=== PATIENT | male | born 1955 | race African-American/Black ===

== ENCOUNTER 2016-12-02 09:27 | Inpatient (IN) | payer MEDICAID, OTHER ==
[~2016-12-02] VITALS: Ht 180.3 cm; Wt 68.0 kg
[~2016-12-02 09:27] MED LIST: ADVAIR; ALBU18HF2; ALBU2.5V13; ALBUTEROL; ATROV; ATROVENT; CARI350T27; CLOT15CR5; DIPH25CA6; FLUT1DIS3; HYDR-3162; LORA0.5T2; NITR0.4T; ROBITUSSIN; TAMS0.4C31; VIC; ZOCOR
[2016-12-02] MEDS ORDERED: IPRATROPIUM/ALBUTEROL 0.5-3(2.5)MG/3ML NEB HHN ONE (10:00)
[2016-12-02 10:34] LABS: HEMATOCRIT. 41.7 % (42.0-52.0); HEMOGLOBIN. 13.6 g/dL (14.0-18.0); MEAN CORPUSCULAR HEMOGLOBIN 28.8 pg (28.0-32.0); MEAN CORPUSCULAR VOLUME 88.4 fL (80.0-94.0); MEAN PLATELET VOLUME 7.5 fl (7.4-10.4); PLATELET 209 x1000/uL (130-400); RED BLOOD CELL COUNT 4.72 mill/uL (4.7-6.1); RED CELL DISTRIBUTION WIDTH 16.1 % (11.6-14.6)
[2016-12-02 10:40] LABS: CHLORIDE 106 mEq/L (98-107)
[2016-12-02 10:43] LABS: INR 1.1; PARTIAL THROMBOPLASTIN TIME 23.4 sec (23.4-31.0)
[2016-12-02] MEDS ORDERED: LEVOFLOXACIN 750MG PREMIX 150 ML IV ONE (10:45)
[2016-12-02 10:55] LABS: CARBON DIOXIDE 31 mEq/L (21-32)
[2016-12-02 11:03] LABS: TROPONIN I < 0.02 ng/mL (0.00-0.04)
[2016-12-02 11:34] LABS: CLARITY URINE CLEAR (CLEAR); COLOR URINE YELLOW (YELLOW); GLUCOSE URINE NEGATIVE (NEGATIVE); KETONES URINE NEGATIVE (NEGATIVE); LEUKOCYTE ESTERASE URINE NEGATIVE (NEGATIVE); NITRITE URINE NEGATIVE (NEGATIVE); OCCULT BLOOD URINE NEGATIVE (NEGATIVE); PROTEIN URINE NEGATIVE (NEGATIVE); SPECIFIC GRAVITY URINE 1.016 (1.005-1.030); UROBILINOGEN URINE 0.2 E.U./dL (0.2-1.0)
[2016-12-02 12:01] LABS: *AMPHETAMINES SCREEN URINE NEGATIVE (NEGATIVE); *BARBITURATES SCREEN URINE NEGATIVE (NEGATIVE); *BENZODIAZEPINES SCREEN URINE NEGATIVE (NEGATIVE); *COCAINE SCREEN URINE PRESUMTIVE POSITIVE (NEGATIVE); CANNABINOID URINE SCREEN NEGATIVE (NEGATIVE); METHADONE URINE SCREEN NEGATIVE (NEGATIVE); OPIATES URINE SCREEN NEGATIVE (NEGATIVE); PHENCYCLIDINE URINE SCREEN NEGATIVE (NEGATIVE)
[2016-12-02 12:16] LABS: PLATELET ESTIMATE NORMAL
[2016-12-02] MEDS ORDERED: IPRATROPIUM/ALBUTEROL 0.5-3(2.5)MG/3ML NEB INH PRN (12:45)
[2016-12-02] MEDS ORDERED: CLONIDINE 0.1MG TABLET PO PRN (12:45)
[2016-12-02] MEDS ORDERED: ONDANSETRON HCL 4MG/2ML VIAL IV PRN (12:45)
[2016-12-02] MEDS ORDERED: ACETAMINOPHEN 325MG TABLET PO PRN (12:45)
[2016-12-02] MEDS: HYDROCODONE/ACETAMINOPHEN 5/325MG TABLET PO PRN ×2 (13:34→17:48)
[2016-12-02 15:28] VITALS: BP 128/62
[2016-12-02 16:03] VITALS: BP 128/62
[2016-12-02] MEDS ORDERED: DIPH25CA83 PO (16:14)
[2016-12-02] MEDS ORDERED: CARI350T PO (16:14)
[2016-12-02] MEDS ORDERED: PROM6.25 PO (16:24)
[2016-12-02] MEDS ORDERED: DIPHENHYDRAMINE 25MG CAPSULE PO SCH (16:30)
[2016-12-02] MEDS: CARISOPRODOL 350 MG TABLET PO PRN (17:43)
[2016-12-02] MEDS: METHYLPREDNISOLONE SOD SUCC 40 MG/ML VIAL IV SCH ×2 (17:43→23:17)
[2016-12-02] MEDS ORDERED: VANCOMYCIN 1250MG in DEXTROSE 5% WATER 250ML IV NR (18:30)
[2016-12-02] MEDS: PROMETHAZINE LIQUID 6.25MG/5ML 118ML PO PRN (18:33)
[2016-12-02 20:00] VITALS: BP 135/79
[2016-12-03] VITALS: BP 142/73
[2016-12-03] MEDS ORDERED: VANCOMYCIN 1 G PREMIX 200 ML IV SCH (02:00)
[2016-12-03] MEDS: HYDROCODONE/ACETAMINOPHEN 5/325MG TABLET PO PRN (03:01)
[2016-12-03] MEDS: PROMETHAZINE LIQUID 6.25MG/5ML 118ML PO PRN ×2 (03:02→18:25)
[2016-12-03] MEDS: IPRATROPIUM/ALBUTEROL 0.5-3(2.5)MG/3ML NEB INH SCH ×5 (03:31→21:06)
[2016-12-03 04:00] VITALS: BP 132/78
[2016-12-03] MEDS ORDERED: VANCOMYCIN 750 MG PREMIX 150 ML IV SCH (05:00)
[2016-12-03] MEDS: CARISOPRODOL 350 MG TABLET PO PRN ×2 (05:43→18:25)
[2016-12-03 07:07] LABS: HEMATOCRIT. 42.5 % (42.0-52.0); MEAN CORPUSCULAR HEMOGLOBIN 29.1 pg (28.0-32.0); MEAN CORPUSCULAR VOLUME 88.2 fL (80.0-94.0); MEAN PLATELET VOLUME 7.6 fl (7.4-10.4); PLATELET 211 x1000/uL (130-400); RED BLOOD CELL COUNT 4.82 mill/uL (4.7-6.1); RED CELL DISTRIBUTION WIDTH 16.2 % (11.6-14.6)
[2016-12-03 07:42] LABS: CARBON DIOXIDE 22 mEq/L (21-32); CHLORIDE 105 mEq/L (98-107); LDL CHOLESTEROL 61 mg/dL (5-100)
[2016-12-03 07:43] LABS: HDL CHOLESTEROL 98 mg/dL (40-59)
[2016-12-03 08:00] VITALS: BP 139/78
[2016-12-03] MEDS: DIPHENHYDRAMINE 50MG/ML VIAL IV PRN ×2 (09:19→21:25)
[2016-12-03] MEDS: METHYLPREDNISOLONE SOD SUCC 40 MG/ML VIAL IV SCH ×2 (09:19→18:11)
[2016-12-03] MEDS: MULTIVITAMINS,THER W-MINERALS TABLET PO SCH (11:31)
[2016-12-03] MEDS: FOLIC ACID 1MG TABLET PO SCH (11:31)
[2016-12-03] MEDS: VANCOMYCIN 1 G PREMIX 200 ML IV SCH ×2 (11:31→22:53)
[2016-12-03] MEDS: THIAMINE HCL 100MG TABLET PO SCH (11:31)
[2016-12-03 12:00] VITALS: BP 141/76
[2016-12-03] MEDS: MORPHINE SULFATE 4 MG/ML CPJ (NOT FOR IM USE) IV PRN ×2 (14:10→18:11)
[2016-12-03] MEDS: ENOXAPARIN 40MG/0.4ML SYR SUBCUT SCH (14:11)
[2016-12-03 16:00] VITALS: BP 128/73
[2016-12-03] MEDS ORDERED: IOHEXOL-300 100 ML BOTTLE ONE (16:57)
[2016-12-03 17:36] LABS: PLATELET ESTIMATE NORMAL
[2016-12-03 20:00] VITALS: BP 119/58
[2016-12-04] VITALS: BP 111/56
[2016-12-04] MEDS: METHYLPREDNISOLONE SOD SUCC 40 MG/ML VIAL IV SCH ×2 (01:13→10:19)
[2016-12-04] MEDS: IPRATROPIUM/ALBUTEROL 0.5-3(2.5)MG/3ML NEB INH SCH ×3 (01:14→07:40)
[2016-12-04] MEDS: BUDESONIDE 0.5MG/2ML NEB HHN SCH ×2 (01:14→07:40)
[2016-12-04] MEDS: PROMETHAZINE LIQUID 6.25MG/5ML 118ML PO PRN ×2 (03:31→10:35)
[2016-12-04] MEDS: CARISOPRODOL 350 MG TABLET PO PRN ×2 (03:33→15:36)
[2016-12-04 04:00] VITALS: BP 118/62
[2016-12-04 07:47] LABS: HEMATOCRIT. 40.5 % (42.0-52.0); HEMOGLOBIN. 13.2 g/dL (14.0-18.0); MEAN CORPUSCULAR HEMOGLOBIN 28.7 pg (28.0-32.0); MEAN CORPUSCULAR VOLUME 87.9 fL (80.0-94.0); MEAN PLATELET VOLUME 7.5 fl (7.4-10.4); PLATELET 240 x1000/uL (130-400); RED BLOOD CELL COUNT 4.61 mill/uL (4.7-6.1); RED CELL DISTRIBUTION WIDTH 16.1 % (11.6-14.6)
[2016-12-04 08:00] VITALS: BP 119/64
[2016-12-04 08:08] LABS: CARBON DIOXIDE 28 mEq/L (21-32); CHLORIDE 105 mEq/L (98-107)
[2016-12-04] MEDS: FOLIC ACID 1MG TABLET PO SCH (10:19)
[2016-12-04] MEDS: MULTIVITAMINS,THER W-MINERALS TABLET PO SCH (10:19)
[2016-12-04] MEDS: THIAMINE HCL 100MG TABLET PO SCH (10:19)
[2016-12-04] MEDS: VANCOMYCIN 1 G PREMIX 200 ML IV SCH (10:19)
[2016-12-04] MEDS: HYDROCODONE/ACETAMINOPHEN 5/325MG TABLET PO PRN (10:35)
[2016-12-04 12:00] VITALS: BP 108/59
[2016-12-04] MEDS ORDERED: LEVO500T2 PO (14:52)
[2016-12-04] MEDS ORDERED: FOLI-43 PO (14:52)
[2016-12-04] MEDS ORDERED: CLIN300C11 PO (14:52)
[2016-12-04] MEDS ORDERED: P20 PO (14:52)
[2016-12-04] MEDS ORDERED: THIA100T72 PO (14:52)
[2016-12-04] MEDS ORDERED: HYDR-4001 PO (14:52)
[2016-12-04] MEDS: ENOXAPARIN 40MG/0.4ML SYR SUBCUT SCH (15:36)
[2016-12-04 15:43] LABS: PLATELET ESTIMATE NORMAL
[2016-12-04 16:00] VITALS: BP 131/71
[2016-12-04] MEDS ORDERED: PREDNISONE 20MG TABLET PO SCH (17:00)
[2016-12-04 19:09] VITALS: BP 125/74
== END 2016-12-04 19:28 | disposition home or self-care (01) | DRG 721 ==
LOC: ER 09:57 → 5WST 10:46 → EDBEDREQ 10:49 → ENRESERV 13:35
PROVIDERS: ADMIT Internal Medicine; ATTEND Internal Medicine
DX: T81.4XXA Infection following a procedure, initial encounter (principal); J96.00 Acute respiratory failure, unspecified whether with hypoxia or hypercapnia; J12.9 Viral pneumonia, unspecified; J44.0 Chronic obstructive pulmonary disease with (acute) lower respiratory infection; J44.1 Chronic obstructive pulmonary disease with (acute) exacerbation; I10 Essential (primary) hypertension; J20.9 Acute bronchitis, unspecified; F14.10 Cocaine abuse, uncomplicated; F10.10 Alcohol abuse, uncomplicated; R91.1 Solitary pulmonary nodule; F19.10 Other psychoactive substance abuse, uncomplicated; F17.200 Nicotine dependence, unspecified, uncomplicated; M25.572 Pain in left ankle and joints of left foot; G89.29 Other chronic pain; Z88.6 Allergy status to analgesic agent; Z79.1 Long term (current) use of non-steroidal anti-inflammatories (NSAID); Z79.899 Other long term (current) drug therapy; Z85.118 Personal history of other malignant neoplasm of bronchus and lung; Z88.0 Allergy status to penicillin; Z88.8 Allergy status to other drugs, medicaments and biological substances
CPT/HCPCS: 36415; 71010; 71270; 73610; 80048; 80053; 80061; 80305; 81003; 83880; 84484; 85025; 85610; 85730; 87040; 87086; 93005; 94640; 96365; 96366; 97116; 97162; 99285; J1200; J1650; J1956; J2270; J2920; J3370; J7040; J7060; J7620; J7626; Q0169; Q9967

== ENCOUNTER 2016-12-10 12:13 | Emergency (ER) | payer MEDICAID ==
[~2016-12-10] VITALS: Ht 182.9 cm; Wt 103.0 kg
[~2016-12-10 12:13] MED LIST changes: -ADVAIR; -ALBU18HF2; -ATROVENT; +CARI350T PO; -CARI350T27; +CLIN300C11 PO; -CLOT15CR5; -DIPH25CA6; +DIPH25CA83 PO; +FOLI-43 PO; -HYDR-3162; +HYDR-4001 PO; +LEVO500T2 PO; -LORA0.5T2; -NITR0.4T; +P20 PO; +PROM6.25 PO; -ROBITUSSIN; -TAMS0.4C31; +THIA100T72 PO; -VIC; -ZOCOR
[2016-12-10] MEDS ORDERED: LEVOFLOXACIN 500MG TABLET PO ONE (17:00)
[2016-12-10 17:16] VITALS: BP 101/74
== END 2016-12-10 17:17 | disposition home or self-care (01) ==
LOC: ER 12:13
DX: Z76.0 Encounter for issue of repeat prescription (principal); M86.9 Osteomyelitis, unspecified; I10 Essential (primary) hypertension; J44.9 Chronic obstructive pulmonary disease, unspecified; F12.10 Cannabis abuse, uncomplicated; Z88.0 Allergy status to penicillin; Z88.6 Allergy status to analgesic agent
CPT/HCPCS: 99283

== ENCOUNTER 2017-09-25 05:31 | Emergency (ER) | payer MEDICAID ==
[~2017-09-25] VITALS: Ht 177.8 cm; Wt 75.0 kg
[~2017-09-25 05:31] MED LIST changes: -CARI350T PO; +S350 PO
[2017-09-25 05:55] VITALS: BP 122/71
[2017-09-25] MEDS ORDERED: ACETAMINOPHEN 325MG TABLET PO ONE (09:15)
== END 2017-09-25 10:43 | disposition home or self-care (01) ==
LOC: ER 05:31
DX: S96.912A Strain of unspecified muscle and tendon at ankle and foot level, left foot, initial encounter (principal); J44.9 Chronic obstructive pulmonary disease, unspecified; I10 Essential (primary) hypertension; Z88.6 Allergy status to analgesic agent; Z91.013 Allergy to seafood; Z88.0 Allergy status to penicillin; Z98.890 Other specified postprocedural states; X58.XXXA Exposure to other specified factors, initial encounter; Y93.89 Activity, other specified; Y92.018 Other place in single-family (private) house as the place of occurrence of the external cause
CPT/HCPCS: 73610; 73630; 99284; Z7610

== ENCOUNTER 2018-03-04 07:39 | Inpatient (IN) | payer MEDICAID ==
[~2018-03-04] VITALS: Ht 180.3 cm; Wt 66.2 kg
[~2018-03-04 07:39] MED LIST changes: -PROM6.25 PO; +PROM6.254 PO
[2018-03-04] MEDS ORDERED: NITROGLYCERIN 0.4MG TABLET SL SL PRN (09:30)
[2018-03-04] MEDS ORDERED: ASPIRIN 81MG TABLET PO ONE (09:30)
[2018-03-04 09:55] LABS: HEMATOCRIT. 45.7 % (42.0-52.0); MEAN CORPUSCULAR HEMOGLOBIN 30.2 pg (28.0-32.0); PLATELET 196 x1000/uL (130-400); RED BLOOD CELL COUNT 4.97 mill/uL (4.7-6.1); RED CELL DISTRIBUTION WIDTH 14.2 % (11.6-14.6)
[2018-03-04 10:01] LABS: CHLORIDE 105 mEq/L (98-107)
[2018-03-04 10:14] LABS: ATYPICAL LYMPHOCYTES 1
[2018-03-04 10:15] LABS: PLATELET ESTIMATE NORMAL
[2018-03-04] MEDS ORDERED: CLONIDINE 0.1MG TABLET PO PRN (13:30)
[2018-03-04] MEDS ORDERED: ONDANSETRON HCL 4MG/2ML INJ IV PRN (13:30)
[2018-03-04] MEDS ORDERED: ACETAMINOPHEN 325MG TABLET PO PRN (13:30)
[2018-03-04 14:17] LABS: CLARITY URINE CLEAR (CLEAR); COLOR URINE YELLOW (YELLOW); KETONES URINE NEGATIVE (NEGATIVE); LEUKOCYTE ESTERASE URINE NEGATIVE (NEGATIVE); NITRITE URINE NEGATIVE (NEGATIVE); OCCULT BLOOD URINE NEGATIVE (NEGATIVE); PH URINE 6.5 (4.5-8.0); PROTEIN URINE NEGATIVE (NEGATIVE); SPECIFIC GRAVITY URINE 1.005 (1.005-1.030); UROBILINOGEN URINE 0.2 E.U./dL (0.2-1.0)
[2018-03-04 14:35] LABS: *AMPHETAMINES SCREEN URINE NEGATIVE (NEGATIVE); *BARBITURATES SCREEN URINE NEGATIVE (NEGATIVE); *BENZODIAZEPINES SCREEN URINE NEGATIVE (NEGATIVE); *COCAINE SCREEN URINE PRESUMTIVE POSITIVE (NEGATIVE)
[2018-03-04 14:36] LABS: CANNABINOID URINE SCREEN NEGATIVE (NEGATIVE); METHADONE URINE SCREEN NEGATIVE (NEGATIVE); OPIATES URINE SCREEN NEGATIVE (NEGATIVE); PHENCYCLIDINE URINE SCREEN NEGATIVE (NEGATIVE)
[2018-03-04] MEDS ORDERED: AZITHROMYCIN 500 MG TABLET PO SCH (15:45)
[2018-03-04] MEDS ORDERED: AMLODIPINE 2.5MG TABLET PO SCH (16:00)
[2018-03-04] MEDS: HYDROCODONE/ACETAMINOPHEN 5/325MG TABLET PO PRN ×2 (18:10→22:04)
[2018-03-04 20:00] VITALS: BP 130/93
[2018-03-04] MEDS: ENOXAPARIN 40MG/0.4ML SYR SUBCUT SCH (20:13)
[2018-03-04] MEDS: AZITHROMYCIN 500 MG TABLET PO SCH (20:13)
[2018-03-04] MEDS: AMLODIPINE 2.5MG TABLET PO SCH (20:14)
[2018-03-04] MEDS: IPRATROPIUM/ALBUTEROL 0.5-3(2.5)MG/3ML NEB HHN PRN (20:45)
[2018-03-04 21:43] LABS: CHLORIDE 104 mEq/L (98-107)
[2018-03-04 21:52] LABS: CREATINE KINASE 283 IU/L (39-308)
[2018-03-04 21:54] LABS: CREATINE KINASE MB FRACTION 1.9 ng/mL (0.5-3.6)
[2018-03-04 23:48] VITALS: BP 140/80
[2018-03-05] MEDS ORDERED: DEXTROSE 50% WATER 50ML SYRINGE IV PRN (00:45)
[2018-03-05] MEDS: HYDROCODONE/ACETAMINOPHEN 5/325MG TABLET PO PRN ×4 (03:15→22:30)
[2018-03-05 03:52] VITALS: BP 142/78
[2018-03-05] MEDS: BLOOD SUGAR DIAGNOSTIC STRIP TEST SCH ×4 (06:47→21:15)
[2018-03-05] MEDS: INSULIN LISPRO 100 UNITS/ML SUBCUT SCH ×4 (06:47→21:00)
[2018-03-05 07:17] LABS: HEMATOCRIT. 43.4 % (42.0-52.0); HEMOGLOBIN. 14.1 g/dL (14.0-18.0); MEAN CORPUSCULAR HEMOGLOBIN 30.2 pg (28.0-32.0); MEAN CORPUSCULAR VOLUME 92.7 fL (80.0-94.0); MEAN PLATELET VOLUME 7.3 fl (7.4-10.4); PLATELET 183 x1000/uL (130-400); RED BLOOD CELL COUNT 4.68 mill/uL (4.7-6.1); RED CELL DISTRIBUTION WIDTH 14.2 % (11.6-14.6)
[2018-03-05 07:43] LABS: CHLORIDE 101 mEq/L (98-107)
[2018-03-05 07:51] LABS: LDL CHOLESTEROL 56 mg/dL (5-100)
[2018-03-05 07:53] LABS: CREATINE KINASE 205 IU/L (39-308)
[2018-03-05 07:54] LABS: HDL CHOLESTEROL 82 mg/dL (40-59)
[2018-03-05 07:56] LABS: CREATINE KINASE MB FRACTION 1.4 ng/mL (0.5-3.6)
[2018-03-05 08:00] VITALS: BP 122/78
[2018-03-05] MEDS: AMLODIPINE 2.5MG TABLET PO SCH ×2 (09:00→21:15)
[2018-03-05 12:10] VITALS: BP 135/80
[2018-03-05 13:48] LABS: PLATELET ESTIMATE NORMAL
[2018-03-05 16:00] VITALS: BP 108/75
[2018-03-05 20:00] VITALS: BP 136/91
[2018-03-05] MEDS: IPRATROPIUM/ALBUTEROL 0.5-3(2.5)MG/3ML NEB HHN PRN (21:05)
[2018-03-05] MEDS: AZITHROMYCIN 500 MG TABLET PO SCH (21:14)
[2018-03-05] MEDS: ENOXAPARIN 40MG/0.4ML SYR SUBCUT SCH (21:15)
[2018-03-06] VITALS: BP 114/95
[2018-03-06 04:00] VITALS: BP 116/71
[2018-03-06] MEDS: HYDROCODONE/ACETAMINOPHEN 5/325MG TABLET PO PRN ×3 (05:39→20:48)
[2018-03-06] MEDS: INSULIN LISPRO 100 UNITS/ML SUBCUT SCH ×4 (06:18→20:47)
[2018-03-06] MEDS: BLOOD SUGAR DIAGNOSTIC STRIP TEST SCH ×4 (06:18→20:47)
[2018-03-06 07:33] LABS: HEMATOCRIT. 45.6 % (42.0-52.0); HEMOGLOBIN. 15.4 g/dL (14.0-18.0); MEAN CORPUSCULAR HEMOGLOBIN 31.3 pg (28.0-32.0); MEAN CORPUSCULAR VOLUME 92.2 fL (80.0-94.0); MEAN PLATELET VOLUME 7.4 fl (7.4-10.4); PLATELET 183 x1000/uL (130-400); RED BLOOD CELL COUNT 4.94 mill/uL (4.7-6.1); RED CELL DISTRIBUTION WIDTH 14.1 % (11.6-14.6)
[2018-03-06 07:47] LABS: CHLORIDE 100 mEq/L (98-107)
[2018-03-06 08:00] VITALS: BP 131/77
[2018-03-06 08:10] LABS: CREATINE KINASE 197 IU/L (39-308)
[2018-03-06] MEDS: AMLODIPINE 2.5MG TABLET PO SCH ×2 (09:49→20:46)
[2018-03-06 10:11] LABS: HIV SCREEN 4G Non Reactive (Non Reactive)
[2018-03-06 12:00] VITALS: BP 118/73
[2018-03-06] MEDS: LISINOPRIL 2.5MG TABLET PO SCH (13:03)
[2018-03-06] MEDS: FUROSEMIDE 40MG TABLET PO SCH (13:04)
[2018-03-06] MEDS: POTASSIUM CHLORIDE 10MEQ TABLET SR PO SCH (13:04)
[2018-03-06] MEDS: PROMETHAZINE/DEXTROMETHORPHAN 6.25-15MG/5ML BOTTLE 120ML PO PRN ×2 (15:28→22:35)
[2018-03-06 15:38] LABS: PLATELET ESTIMATE NORMAL
[2018-03-06 16:00] VITALS: BP 122/76
[2018-03-06 20:00] VITALS: BP 125/56
[2018-03-06] MEDS: ENOXAPARIN 40MG/0.4ML SYR SUBCUT SCH (20:46)
[2018-03-06] MEDS: AZITHROMYCIN 500 MG TABLET PO SCH (20:46)
[2018-03-07] VITALS: BP 133/67
[2018-03-07] MEDS: HYDROCODONE/ACETAMINOPHEN 5/325MG TABLET PO PRN ×3 (01:36→20:25)
[2018-03-07 04:00] VITALS: BP 115/63
[2018-03-07] MEDS: PROMETHAZINE/DEXTROMETHORPHAN 6.25-15MG/5ML BOTTLE 120ML PO PRN ×4 (04:50→23:40)
[2018-03-07] MEDS: INSULIN LISPRO 100 UNITS/ML SUBCUT SCH ×4 (05:51→21:00)
[2018-03-07] MEDS: BLOOD SUGAR DIAGNOSTIC STRIP TEST SCH ×4 (05:51→21:53)
[2018-03-07 06:40] LABS: HEMATOCRIT. 46.3 % (42.0-52.0); HEMOGLOBIN. 15.4 g/dL (14.0-18.0); MEAN CORPUSCULAR HEMOGLOBIN 30.7 pg (28.0-32.0); MEAN CORPUSCULAR VOLUME 92.3 fL (80.0-94.0); MEAN PLATELET VOLUME 7.6 fl (7.4-10.4); PLATELET 180 x1000/uL (130-400); RED BLOOD CELL COUNT 5.02 mill/uL (4.7-6.1)
[2018-03-07 07:16] LABS: CHLORIDE 97 mEq/L (98-107)
[2018-03-07 08:00] VITALS: BP 106/67
[2018-03-07] MEDS: LISINOPRIL 2.5MG TABLET PO SCH (09:00)
[2018-03-07] MEDS: AMLODIPINE 2.5MG TABLET PO SCH ×2 (09:00→20:25)
[2018-03-07] MEDS: POTASSIUM CHLORIDE 10MEQ TABLET SR PO SCH (09:08)
[2018-03-07] MEDS: FUROSEMIDE 40MG TABLET PO SCH ×2 (09:08→17:00)
[2018-03-07 12:00] VITALS: BP 140/77
[2018-03-07 14:25] LABS: PLATELET ESTIMATE NORMAL
[2018-03-07 16:00] VITALS: BP 112/89
[2018-03-07] MEDS: IPRATROPIUM/ALBUTEROL 0.5-3(2.5)MG/3ML NEB HHN SCH ×2 (17:02→21:09)
[2018-03-07 20:00] VITALS: BP 114/63
[2018-03-07] MEDS: METHYLPREDNISOLONE SOD SUCC 40 MG/ML VIAL IV SCH (20:24)
[2018-03-07] MEDS: AZITHROMYCIN 500 MG TABLET PO SCH (20:25)
[2018-03-07] MEDS: ENOXAPARIN 40MG/0.4ML SYR SUBCUT SCH (20:25)
[2018-03-08] VITALS: BP 110/60
[2018-03-08] MEDS: IPRATROPIUM/ALBUTEROL 0.5-3(2.5)MG/3ML NEB HHN SCH ×4 (02:13→14:12)
[2018-03-08] MEDS: METHYLPREDNISOLONE SOD SUCC 40 MG/ML VIAL IV SCH ×2 (03:35→13:26)
[2018-03-08 03:42] VITALS: BP 115/65
[2018-03-08] MEDS: BLOOD SUGAR DIAGNOSTIC STRIP TEST SCH ×3 (05:48→17:02)
[2018-03-08] MEDS: INSULIN LISPRO 100 UNITS/ML SUBCUT SCH ×3 (05:48→17:15)
[2018-03-08 07:19] LABS: BASOPHILS % 0.1 % (0.0-2.0); EOSINOPHILS % 0.1 % (0.0-5.0); HEMATOCRIT. 47.7 % (42.0-52.0); HEMOGLOBIN. 15.8 g/dL (14.0-18.0); LYMPHOCYTES % 10.1 % (20.0-50.0); MEAN CORPUSCULAR HEMOGLOBIN 30.3 pg (28.0-32.0); MEAN CORPUSCULAR VOLUME 91.5 fL (80.0-94.0); MEAN PLATELET VOLUME 7.7 fl (7.4-10.4); MONOCYTES % 7.7 % (2.0-8.0); PLATELET 190 x1000/uL (130-400); RED BLOOD CELL COUNT 5.21 mill/uL (4.7-6.1); RED CELL DISTRIBUTION WIDTH 13.9 % (11.6-14.6)
[2018-03-08 07:47] VITALS: BP 112/63
[2018-03-08 07:56] LABS: CHLORIDE 98 mEq/L (98-107)
[2018-03-08] MEDS: LISINOPRIL 2.5MG TABLET PO SCH (08:36)
[2018-03-08] MEDS: POTASSIUM CHLORIDE 10MEQ TABLET SR PO SCH (08:36)
[2018-03-08] MEDS: FUROSEMIDE 40MG TABLET PO SCH ×3 (08:36→17:37)
[2018-03-08] MEDS: HYDROCODONE/ACETAMINOPHEN 5/325MG TABLET PO PRN ×2 (08:37→14:40)
[2018-03-08] MEDS: PROMETHAZINE/DEXTROMETHORPHAN 6.25-15MG/5ML BOTTLE 120ML PO PRN (08:37)
[2018-03-08] MEDS: AMLODIPINE 2.5MG TABLET PO SCH (08:37)
[2018-03-08 12:00] VITALS: BP 126/62
[2018-03-08] MEDS ORDERED: SODIUM POLYSTYRENE SULFONATE 15 G/60 ML BOT PO SCH (13:00)
[2018-03-08] MEDS ORDERED: SODIUM BICARBONATE 8.4% 1 MEQ/ML 50ML SYR IV SCH (14:00)
[2018-03-08] MEDS ORDERED: INSULIN REGULAR (HUMULIN R) UD 100 UNITS/ML SYR IV SCH (14:30)
[2018-03-08] MEDS ORDERED: DEXTROSE 50% WATER 50ML SYRINGE IV SCH (14:30)
[2018-03-08 16:00] VITALS: BP 128/68
[2018-03-08] MEDS ORDERED: LACTULOSE 20G/30ML UDC PO NR (18:00)
[2018-03-08 18:47] VITALS: BP 128/68
== END 2018-03-08 19:15 | disposition home or self-care (01) | DRG 140 ==
LOC: ER 07:39 → 5WST 12:51 → EDBEDREQ 12:59 → CANRESERV 15:40 → ENRESERV 15:40
PROVIDERS: ADMIT Internal Medicine; ATTEND Internal Medicine
DX: J44.1 Chronic obstructive pulmonary disease with (acute) exacerbation (principal); I50.21 Acute systolic (congestive) heart failure; R65.10 Systemic inflammatory response syndrome (SIRS) of non-infectious origin without acute organ dysfunction; I11.0 Hypertensive heart disease with heart failure; I25.110 Atherosclerotic heart disease of native coronary artery with unstable angina pectoris; M94.0 Chondrocostal junction syndrome [Tietze]; F14.10 Cocaine abuse, uncomplicated; D72.819 Decreased white blood cell count, unspecified; E78.00 Pure hypercholesterolemia, unspecified; F17.200 Nicotine dependence, unspecified, uncomplicated; Z90.01 Acquired absence of eye; Z91.19 Patient's noncompliance with other medical treatment and regimen; Z88.0 Allergy status to penicillin; Z88.6 Allergy status to analgesic agent; Z95.5 Presence of coronary angioplasty implant and graft; Z79.1 Long term (current) use of non-steroidal anti-inflammatories (NSAID); Z91.013 Allergy to seafood; Z79.899 Other long term (current) drug therapy; Z79.2 Long term (current) use of antibiotics; Z71.6 Tobacco abuse counseling; Y92.89 Other specified places as the place of occurrence of the external cause
CPT/HCPCS: 36415; 71045; 80048; 80061; 80305; 82550; 82553; 82962; 83735; 83880; 84132; 84443; 84484; 85379; 86803; 87389; 93005; 93306; 94640; 99285; J1650; J1815; J2920; J3490; J7620

== ENCOUNTER 2018-11-11 10:30 | Inpatient (IN) | payer MEDICARE, MEDICAID ==
[~2018-11-11] VITALS: Ht 175.3 cm; Wt 65.8 kg
[~2018-11-11 10:30] MED LIST changes: +CARI-166 PO; -CLIN300C11 PO; -LEVO500T2 PO; -P20 PO; -S350 PO
[2018-11-11 11:11] LABS: BASOPHILS % 0.6 % (0.0-2.0); EOSINOPHILS % 1.5 % (0.0-5.0); HEMATOCRIT. 43.2 % (42.0-52.0); HEMOGLOBIN. 14.3 g/dL (14.0-18.0); LYMPHOCYTES % 16.2 % (20.0-50.0); MEAN CORPUSCULAR VOLUME 93.4 fL (80.0-94.0); MONOCYTES % 14.5 % (2.0-8.0); NEUTROPHILS % 67.2 % (40.0-76.0); PLATELET 229 x1000/uL (130-400); RED BLOOD CELL COUNT 4.62 mill/uL (4.7-6.1); RED CELL DISTRIBUTION WIDTH 14.1 % (11.6-14.6)
[2018-11-11 11:17] LABS: CHLORIDE 105 mEq/L (98-107)
[2018-11-11 11:19] LABS: PROTHROMBIN TIME 10.4 sec (9.6-11.0)
[2018-11-11 11:22] LABS: ETHANOL BLOOD < 10 mg/dL
[2018-11-11 11:25] LABS: LDL CHOLESTEROL 67 mg/dL (5-100)
[2018-11-11] MEDS ORDERED: ASPIRIN 81MG TABLET PO ONE (11:45)
[2018-11-11] MEDS ORDERED: ASPIRIN 81MG EC TABLET PO ONE (12:00)
[2018-11-11] MEDS ORDERED: ATORVASTATIN CALCIUM 40MG TABLET PO ONE (12:15)
[2018-11-11] MEDS ORDERED: MORPHINE SULFATE 4 MG/ML CPJ (NOT FOR IM USE) IV ONE (13:30)
[2018-11-11 13:37] LABS: CLARITY URINE CLEAR (CLEAR); COLOR URINE YELLOW (YELLOW); KETONES URINE NEGATIVE (NEGATIVE); LEUKOCYTE ESTERASE URINE NEGATIVE (NEGATIVE); NITRITE URINE NEGATIVE (NEGATIVE); OCCULT BLOOD URINE NEGATIVE (NEGATIVE); PH URINE 7.5 (4.5-8.0); PROTEIN URINE NEGATIVE (NEGATIVE); SPECIFIC GRAVITY URINE 1.009 (1.005-1.030)
[2018-11-11 14:10] LABS: *BENZODIAZEPINES SCREEN URINE NEGATIVE (NEGATIVE); *COCAINE SCREEN URINE PRESUMTIVE POSITIVE (NEGATIVE)
[2018-11-11 14:11] LABS: CANNABINOID URINE SCREEN NEGATIVE (NEGATIVE); METHADONE URINE SCREEN NEGATIVE (NEGATIVE); OPIATES URINE SCREEN NEGATIVE (NEGATIVE); PHENCYCLIDINE URINE SCREEN NEGATIVE (NEGATIVE)
[2018-11-11 14:12] LABS: *AMPHETAMINES SCREEN URINE NEGATIVE (NEGATIVE); *BARBITURATES SCREEN URINE NEGATIVE (NEGATIVE)
[2018-11-11] MEDS ORDERED: IPRATROPIUM BROMIDE (0.02%) 0.5MG/2.5ML NEB HHN NR (15:01)
[2018-11-11] MEDS ORDERED: ALBUTEROL (0.083%) 2.5MG/3ML NEB HHN NR (15:02)
[2018-11-11 16:50] VITALS: BP 127/80
[2018-11-11] MEDS ORDERED: LORAZEPAM 2MG/ML CPJ IV PRN (19:30)
[2018-11-11] MEDS ORDERED: ONDANSETRON HCL 4MG/2ML INJ IV PRN (19:30)
[2018-11-11] MEDS ORDERED: DIPHENHYDRAMINE 50MG/ML VIAL IV PRN (19:30)
[2018-11-11] MEDS ORDERED: NA PHOS,M-B/NA PHOS,DI-BA ENEMA 118ML PR PRN (19:30)
[2018-11-11] MEDS ORDERED: DOCUSATE SODIUM 100MG CAPSULE PO PRN (19:30)
[2018-11-11] MEDS ORDERED: MAGNESIUM/ALUMINUM HYDROXIDE/SIMETHICONE 30ML UDC PO PRN (19:30)
[2018-11-11] MEDS ORDERED: IPRATROPIUM/ALBUTEROL 0.5-3(2.5)MG/3ML NEB NEB PRN (19:30)
[2018-11-11 20:00] VITALS: BP 131/61
[2018-11-11] MEDS: SODIUM CHLORIDE 0.45% 1,000 ML IV SCH (20:55)
[2018-11-11] MEDS: ENOXAPARIN 40MG/0.4ML SYR SUBCUT SCH (20:55)
[2018-11-11] MEDS: MORPHINE SULFATE 2 MG/ML CPJ (NOT FOR IM USE) IV PRN (21:01)
[2018-11-12] VITALS: BP 107/57
[2018-11-12 00:18] LABS: CHLORIDE 109 mEq/L (98-107)
[2018-11-12 04:00] VITALS: BP 112/72
[2018-11-12] MEDS: MORPHINE SULFATE 2 MG/ML CPJ (NOT FOR IM USE) IV PRN ×3 (05:39→20:21)
[2018-11-12 06:00] LABS: CHLORIDE 108 mEq/L (98-107)
[2018-11-12 06:11] LABS: LDL CHOLESTEROL 56 mg/dL (5-100)
[2018-11-12 06:14] LABS: HDL CHOLESTEROL 71 mg/dL (40-59)
[2018-11-12 06:15] LABS: T4 FREE 1.01 ng/dL (0.76-1.46)
[2018-11-12 06:27] LABS: BASOPHILS % 0.4 % (0.0-2.0); EOSINOPHILS % 2.1 % (0.0-5.0); HEMOGLOBIN. 13.7 g/dL (14.0-18.0); LYMPHOCYTES % 18.3 % (20.0-50.0); MEAN CORPUSCULAR HEMOGLOBIN 31.2 pg (28.0-32.0); MEAN CORPUSCULAR VOLUME 93.4 fL (80.0-94.0); MEAN PLATELET VOLUME 7.5 fl (7.4-10.4); MONOCYTES % 12.5 % (2.0-8.0); NEUTROPHILS % 66.7 % (40.0-76.0); PLATELET 216 x1000/uL (130-400); RED BLOOD CELL COUNT 4.39 mill/uL (4.7-6.1); RED CELL DISTRIBUTION WIDTH 14.2 % (11.6-14.6)
[2018-11-12 08:00] VITALS: BP 101/60
[2018-11-12] MEDS: ASPIRIN 81MG EC TABLET PO SCH (08:21)
[2018-11-12 12:00] VITALS: BP 102/47
[2018-11-12] MEDS: SODIUM CHLORIDE 0.45% 1,000 ML IV SCH (15:19)
[2018-11-12 15:21] LABS: CREATINE KINASE 285 IU/L (39-308)
[2018-11-12 15:22] LABS: CREATINE KINASE MB FRACTION 3.3 ng/mL (0.5-3.6)
[2018-11-12 15:38] VITALS: BP 109/36
[2018-11-12 20:00] VITALS: BP 100/78
[2018-11-12] MEDS: ENOXAPARIN 40MG/0.4ML SYR SUBCUT SCH (20:19)
[2018-11-12] MEDS: GUAIFENESIN 200MG/10ML SUGAR FREE UDC PO PRN (22:37)
[2018-11-12 23:33] LABS: CREATINE KINASE 217 IU/L (39-308)
[2018-11-13] VITALS: BP 109/64
[2018-11-13] MEDS: MORPHINE SULFATE 2 MG/ML CPJ (NOT FOR IM USE) IV PRN ×2 (01:51→08:57)
[2018-11-13 04:00] VITALS: BP 101/66
[2018-11-13 08:00] VITALS: BP 107/56
[2018-11-13 08:38] LABS: HEMATOCRIT. 41.3 % (42.0-52.0); HEMOGLOBIN. 13.7 g/dL (14.0-18.0); MEAN CORPUSCULAR HEMOGLOBIN 30.9 pg (28.0-32.0); MEAN CORPUSCULAR VOLUME 93.2 fL (80.0-94.0); MEAN PLATELET VOLUME 7.5 fl (7.4-10.4); PLATELET 207 x1000/uL (130-400); RED BLOOD CELL COUNT 4.43 mill/uL (4.7-6.1); RED CELL DISTRIBUTION WIDTH 13.7 % (11.6-14.6)
[2018-11-13 08:42] LABS: CHLORIDE 109 mEq/L (98-107)
[2018-11-13 08:53] LABS: CREATINE KINASE 193 IU/L (39-308)
[2018-11-13] MEDS: ASPIRIN 81MG EC TABLET PO SCH (08:55)
[2018-11-13] MEDS: GUAIFENESIN 200MG/10ML SUGAR FREE UDC PO PRN (08:55)
[2018-11-13 08:58] LABS: CREATINE KINASE MB FRACTION 2.6 ng/mL (0.5-3.6)
[2018-11-13 11:32] VITALS: BP 107/50
[2018-11-13] MEDS: SODIUM CHLORIDE 0.45% 1,000 ML IV SCH (12:00)
[2018-11-13 12:11] LABS: PLATELET ESTIMATE NORMAL
[2018-11-13 15:29] VITALS: BP 107/50
[2018-11-13 16:00] VITALS: BP 159/76
== END 2018-11-13 16:47 | disposition home or self-care (01) | DRG 64 ==
LOC: ER 10:36 → 8WST 12:27 → ENRESERV 15:26
PROVIDERS: ADMIT Internal Medicine; ATTEND Internal Medicine
DX: I63.9 Cerebral infarction, unspecified (principal); G93.41 Metabolic encephalopathy; E46 Unspecified protein-calorie malnutrition; R29.810 Facial weakness; R47.81 Slurred speech; R62.7 Adult failure to thrive; E86.0 Dehydration; R20.0 Anesthesia of skin; F14.10 Cocaine abuse, uncomplicated; I11.0 Hypertensive heart disease with heart failure; I25.10 Atherosclerotic heart disease of native coronary artery without angina pectoris; E78.5 Hyperlipidemia, unspecified; F17.210 Nicotine dependence, cigarettes, uncomplicated; I50.9 Heart failure, unspecified; J44.9 Chronic obstructive pulmonary disease, unspecified; M13.0 Polyarthritis, unspecified; Z88.0 Allergy status to penicillin; Z59.0 Homelessness; I25.2 Old myocardial infarction; Z86.73 Personal history of transient ischemic attack (TIA), and cerebral infarction without residual deficits; Z90.01 Acquired absence of eye; Z88.6 Allergy status to analgesic agent; Z68.21 Body mass index [BMI] 21.0-21.9, adult
CPT/HCPCS: 36415; 70551; 71045; 72141; 80048; 80061; 80305; 80320; 81003; 82550; 82553; 82962; 83036; 83721; 83880; 84439; 84443; 84484; 85379; 93005; 93306; 93970; 94640; 99285; J1650; J2270; J7611; G0480

== ENCOUNTER 2023-01-06 22:29 | Emergency (ER) | payer MEDICARE, MEDICAID ==
[~2023-01-06] VITALS: Ht 165.1 cm; Wt 66.0 kg
[~2023-01-06 22:29] MED LIST changes: -CARI-166 PO; +CARI350T28 PO; +PROM6.2527 PO; -PROM6.254 PO
[2023-01-06 22:33] VITALS: O2SAT 98
[2023-01-06 22:59] VITALS: TEMP 98.2
[2023-01-06] MEDS ORDERED: HYDROCODONE/ACETAMINOPHEN 10/325MG TABLET PO ONE (23:00)
[2023-01-06] MEDS ORDERED: TETANUS, DIPHTHERIA, PERTUSSIS VAC/PF 0.5ML (>10YR OLD) IM ONE (23:00)
[2023-01-07] MEDS ORDERED: ACET-2708 MT (02:07)
[2023-01-07] MEDS ORDERED: HYDROCODONE/ACETAMINOPHEN 10/325MG TABLET PO ONE (03:30)
[2023-01-07 03:50] VITALS: BP 143/68; PULSE 72; RESP 19
== END 2023-01-07 03:57 | disposition home or self-care (01) ==
LOC: ER 22:29
DX: S82.202A Unspecified fracture of shaft of left tibia, initial encounter for closed fracture (principal); S80.212A Abrasion, left knee, initial encounter; F14.10 Cocaine abuse, uncomplicated; I11.0 Hypertensive heart disease with heart failure; I50.9 Heart failure, unspecified; J44.9 Chronic obstructive pulmonary disease, unspecified; J45.909 Unspecified asthma, uncomplicated; I25.2 Old myocardial infarction; R93.0 Abnormal findings on diagnostic imaging of skull and head, not elsewhere classified; Z79.899 Other long term (current) drug therapy; X58.XXXA Exposure to other specified factors, initial encounter; Y93.89 Activity, other specified; Y92.89 Other specified places as the place of occurrence of the external cause; Y99.8 Other external cause status
CPT/HCPCS: 71045; 72170; 73110; 73130; 73562; 73590; 90471; 90715; 99285